=== PATIENT | female | born 1965 | race Caucasian/White ===

== ENCOUNTER 2024-05-06 12:25 | Outpatient (CLI) | payer BC ==
[2024-05-06 13:13] LABS: Hematocrit 40.8 % (34.9-44.5)
[2024-05-06 13:49] LABS: Anion Gap 15 mmol/L (10-20); BUN (Urea Nitrogen) 16 mg/dL (9.8-20.1); Calc. Creatinine Clearance 0 mL/min (70-130); Calcium 9.9 mg/dL (7.8-10.44); Carbon Dioxide 26 mmol/L (22-29); Chloride 100 mmol/L (98-107); Estimated GFR 90; Glucose 116 mg/dL (70-105); Potassium 3.8 mmol/L (3.5-5.1); Sodium 137 mmol/L (136-145)
== END 2024-05-06 12:26 | disposition home or self-care (01) ==
LOC: CSHLAB 12:25
PROVIDERS: ATTEND Specialist
DX: Z01.818 Encounter for other preprocedural examination (principal); J34.2 Deviated nasal septum; J34.3 Hypertrophy of nasal turbinates; J32.4 Chronic pansinusitis
CPT/HCPCS: 80048; 85014; 93005; 93010

== ENCOUNTER 2024-05-08 07:21 | Day surgery (SDC) | payer BC ==
[2024-05-06 12:57] VITALS: BMI 38.3
[2024-05-08] MEDS ORDERED: AFRIN NASAL MIST 15 ML BOT ONE ×2 (08:06→09:20)
[2024-05-08] MEDS ORDERED: PROPOFOL 40 ML ONE ×2 (08:20→09:23)
[2024-05-08] MEDS ORDERED: Dexamethasone 4 mg/ml Vial ONE ×2 (08:20→09:23)
[2024-05-08] MEDS ORDERED: SUGAMMADEX SODIUM 200 MG/2 ML VIAL ONE ×2 (08:20→09:23)
[2024-05-08] MEDS ORDERED: Ondansetron PF 4 MG/2 ML Vial ONE ×2 (08:20→09:23)
[2024-05-08] MEDS ORDERED: Rocuronium Bromide 10 MG/ML (10ML VIAL) ONE ×2 (08:20→09:23)
[2024-05-08] MEDS ORDERED: Lidocaine 1% PF 5 ML VIAL ONE ×3 (08:20→09:23)
[2024-05-08] MEDS ORDERED: Lidocaine 1% (PF) 30 ML VIAL ONE (09:20)
[2024-05-08] MEDS ORDERED: EPINEPHrine 1 MG/ML VIAL ONE ×2 (09:20→11:16)
[2024-05-08] MEDS ORDERED: Mupirocin 2% Ointment 22 GM Tube ONE (09:21)
[2024-05-08] MEDS ORDERED: fentaNYL 50 mcg/mL 1 mL Vial ONE ×3 (09:24→12:34)
[2024-05-08] MEDS ORDERED: methylPREDNISolone Acetate 40 mg/ml Vial ONE (10:24)
[2024-05-08] MEDS ORDERED: Bacitracin 1 PK ONE (11:11)
[2024-05-08] MEDS ORDERED: Oxymetazoline HCl 0.05% ( 15 ML ) ONE (11:11)
[2024-05-08] MEDS ORDERED: Lidocaine 1% w/Epinephrine 1:100K 20 ML VIAL ONE (11:11)
[2024-05-08] MEDS ORDERED: oxyCODONE 5 MG TAB ONE (13:12)
== END 2024-05-08 14:15 | disposition home or self-care (01) ==
LOC: CSHSDC 07:21
PROVIDERS: ATTEND Specialist
PROC: 09TS8ZZ Resection of Right Frontal Sinus, Via Natural or Artificial Opening Endoscopic (ICD-10-PCS; principal; 2024-05-08)
PROC: 09BM8ZZ Excision of Nasal Septum, Via Natural or Artificial Opening Endoscopic (ICD-10-PCS; principal; 2024-05-08)
PROC: 09TL8ZZ Resection of Nasal Turbinate, Via Natural or Artificial Opening Endoscopic (ICD-10-PCS; principal; 2024-05-08)
PROC: 09TU8ZZ Resection of Right Ethmoid Sinus, Via Natural or Artificial Opening Endoscopic (ICD-10-PCS; principal; 2024-05-08)
PROC: 09TQ8ZZ Resection of Right Maxillary Sinus, Via Natural or Artificial Opening Endoscopic (ICD-10-PCS; principal; 2024-05-08)
DX: J34.3 Hypertrophy of nasal turbinates (principal); J32.4 Chronic pansinusitis; J34.2 Deviated nasal septum; J33.9 Nasal polyp, unspecified; I10 Essential (primary) hypertension; E78.5 Hyperlipidemia, unspecified; E11.9 Type 2 diabetes mellitus without complications; J34.89 Other specified disorders of nose and nasal sinuses; Z79.82 Long term (current) use of aspirin; Z79.84 Long term (current) use of oral hypoglycemic drugs; Z79.899 Other long term (current) drug therapy
CPT/HCPCS: J0171; J1010; J1100; J2405; J2704; J3010